=== PATIENT | female | born 1985 | race Caucasian/White ===

== ENCOUNTER 2020-01-27 15:24 | Emergency (ER) | payer OTHER, SELFPAY ==
[~2020-01-27] VITALS: Ht 154.9 cm; Wt 99.8 kg
[2020-01-27 16:05] VITALS: BP 127/80; Ht 154.9 cm; Wt 99.8 kg
[2020-01-27] MEDS ORDERED: AMO500 PO (16:52)
== END 2020-01-27 16:58 | disposition home or self-care (01) ==
LOC: ED 15:24
DX: U07.1 COVID-19 (principal); Z90.89 Acquired absence of other organs; Z90.49 Acquired absence of other specified parts of digestive tract
CPT/HCPCS: U0003

== ENCOUNTER 2020-02-16 17:05 | Emergency (ER) | payer OTHER ==
[~2020-02-16] VITALS: Ht 160 cm; Wt 103.0 kg
[~2020-02-16 17:05] MED LIST: AMO500 PO
[2020-02-16 17:18] VITALS: BP 153/78; Ht 160 cm; Wt 103.0 kg
== END 2020-02-16 17:57 | disposition home or self-care (01) ==
LOC: ED 17:05
DX: R10.33 Periumbilical pain (principal); L08.9 Local infection of the skin and subcutaneous tissue, unspecified; L53.9 Erythematous condition, unspecified; Z90.89 Acquired absence of other organs; Z90.49 Acquired absence of other specified parts of digestive tract

== ENCOUNTER 2020-03-25 13:21 | Emergency (ER) | payer OTHER ==
[~2020-03-25] VITALS: Ht 162.6 cm; Wt 97.5 kg
[2020-03-25 13:22] VITALS: Ht 162.6 cm; Wt 97.5 kg
[2020-03-25 15:12] LABS: BASOPHIL % 0.8 % (0.2-1.3); PLATELET COUNT 285 x10^3mcL (179-408); RED CELL DISTRIBUTION WIDTH 13.4 % (12.3-17.7)
[2020-03-25 15:21] LABS: CALCIUM 9.1 mg/dL (8.5-10.1); CARBON DIOXIDE 31.8 mmol/L (21-32); CHLORIDE SERUM 105 mmol/L (98-107); CREATININE SERUM 0.6 mg/dL (0.6-1.0); GFR1 > 60 mL/min; GLUCOSE SERUM 84 mg/dL (74-106); SODIUM SERUM 141 mmol/L (136-145)
[2020-03-25] MEDS ORDERED: ANTIBIOTIC O500 U/GM TOP (15:52)
[2020-03-25 19:48] VITALS: BP 155/83
== END 2020-03-25 19:48 | disposition home or self-care (01) ==
LOC: ED 13:21
PROVIDERS: Emergency Medicine
DX: P38.9 Omphalitis without hemorrhage (principal); K42.9 Umbilical hernia without obstruction or gangrene
CPT/HCPCS: Q9967

== ENCOUNTER 2020-04-08 01:47 | Emergency (ER) | payer OTHER ==
[~2020-04-08] VITALS: Ht 152.4 cm; Wt 104.8 kg
[~2020-04-08 01:47] MED LIST changes: +ANTIBIOTIC O500 U/GM TOP
[2020-04-08 02:44] VITALS: BP 134/80
== END 2020-04-08 02:45 | disposition home or self-care (01) ==
LOC: ED 01:47
DX: K42.9 Umbilical hernia without obstruction or gangrene (principal); Z90.49 Acquired absence of other specified parts of digestive tract